=== PATIENT | female | born 1950 | race Caucasian/White ===

== ENCOUNTER → 2019-12-05 | Outpatient (CLI) | payer MEDICARE, OTHER | LOC: YCFC.O 15:55 | PROVIDERS: ATTEND Nurse Practitioner | DX: Z20.828 Contact with and (suspected) exposure to other viral communicable diseases (principal) ==

== ENCOUNTER → 2020-02-09 | Outpatient (CLI) | payer MEDICARE, OTHER | LOC: YCFC.O 10:35 | PROVIDERS: ATTEND Family Medicine | DX: U07.1 COVID-19 (principal); Z11.59 Encounter for screening for other viral diseases ==